=== PATIENT | male | born 1950 | race Caucasian/White ===

== ENCOUNTER → 2016-07-19 | Outpatient (CLI) | payer OTHER ==
--- NOTE | 2016-07-19 10:29 | KCIC ---
PROCEDURE MRI right shoulder without contrast dated 07/19/2016. HISTORY Preop for total shoulder replacement. Right shoulder pain. Frequent dislocations. TECHNIQUE Routine multiplanar multisequence MR imaging right shoulder performed. COMPARISON None. FINDINGS Moderate hypertrophic change of the glenohumeral joint with prominent marginal osteophytes. Thinning and surface irregularity of the articular cartilage loss throughout with suspected areas of full-thickness cartilage loss at the central inferior glenoid and inferior humeral head. Blunted morphology of the glenoid labrum throughout with suspected focal tear at the posterior inferior labrum. Several adjacent paralabral cysts. Small glenohumeral joint effusion. There are small loose bodies extending along the extra-articular biceps tendon and bicipital groove. Intermediate T2 signal within the substance of the long head biceps tendon proximally. Extra-articular portion courses within the bicipital groove. Biceps anchor is intact. There is some linear signal undermining the posterior superior labrum. Intermediate T2 signal throughout the supraspinatus and infra spinatus portions of the rotator cuff. There is articular bursal surface fraying of the anterior supraspinatus footplate. No definite full thickness tear or cuff retraction. Subscapularis is thickened and of intermediate T2 signal but otherwise intact. Evidence of prior subacromial decompression in with widening at the AC distance. There is mild undersurface irregularity of the acromion. Trace amount of subacromial/subdeltoid bursal fluid. Suprascapular and spinoglenoid notches are clear. There is fatty atrophy of the deltoid musculature and teres minor muscle. 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 There is full-thickness cartilage loss of the central glenoid and medial humeral head. - Degenerative tearing of the glenoid labrum withl several small paralabral cysts. - Small glenohumeral joint effusion with loose bodies extending along the proximal biceps tendon sheath. - Mild biceps tendinopathy. - Moderate rotator cuff tendinopathy with no evidence of full-thickness tear. - Postsurgical changes of the AC joint. - Fatty atrophy of the teres minor muscle and deltoid musculature, indeterminate. Consider quadrilateral space syndrome. Electronically signed by: Austyn Ochoa (Jul 19, 2016 10:28:22)
== END | disposition home or self-care (01) ==
LOC: KCIC MRI 08:35
PROVIDERS: ATTEND Physician Assistant Medical
DX: M25.511 Pain in right shoulder (principal); Z98.890 Other specified postprocedural states
CPT/HCPCS: 73221